=== PATIENT | female | born 2000 | race American Indian/Alaskan Native ===

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

== ENCOUNTER 2020-07-08 11:20 | Emergency (ER) | payer SELFPAY ==
[2020-07-08 11:27] VITALS: BP 110/75
[2020-07-08] MEDS ORDERED: ACETAMINOPHEN 325 MG TAB PO ONE (13:40)
[2020-07-08] MEDS ORDERED: LIDOCAINE 1%/EPINEPHRINE 1:100,000 VIAL (20 ML) INFILTRATI ONE (13:51)
[2020-07-08 14:19] LABS: Basophils % (Auto) 0.4 % (0.0-1.8); Eosinophils % (Auto) 0.8 % (0.0-4.3); Hematocrit 37.7 % (30.3-42.9); Hemoglobin 12.9 gm/dl (10.1-14.3); Lymphocytes # (Auto) 1.3 K/mm3 (1.2-5.4); Lymphocytes % (Auto) 27.2 % (13.4-35.0); Mean Corpuscular HGB Conc 34 % (30-34); Mean Corpuscular Volume 82 fl (79-97); Monocytes # (Auto) 0.3 K/mm3 (0.0-0.8); Monocytes % (Auto) 6.6 % (0.0-7.3); Platelet Count 305 K/mm3 (140-440); Red Blood Count 4.58 M/mm3 (3.65-5.03); Red Cell Distribution Width 14.5 % (13.2-15.2)
[2020-07-08] MEDS ORDERED: DIPHtheria,PERTUSSIS(ACELL),TETANUS VACCINE/PF 0.5 ML VIAL IM ONE (14:30)
[2020-07-08 14:32] LABS: Alanine Aminotransferase 9 units/L (7-56); Albumin 4.4 g/dL (3.9-5); Blood Urea Nitrogen 8 mg/dL (7-17); Calcium 9.6 mg/dL (8.4-10.2); Hemolysis Index 3
[2020-07-08 14:35] LABS: BUN/Creatinine Ratio 11
--- NOTE | 2020-07-08 15:08 | Emergency Department Report ---
ED Syncope HPI - General Chief Complaint: Fall Stated Complaint: FELL HIT HEAD Time Seen by Provider: 07/08/20 13:42 Source: patient Exam Limitations: no limitations - History of Present Illness Initial Comments: 20-year-old female with no significant past medical history presents to the hospital status post syncopal episode. Patient was standing in a hot garage doing a friend's hair. Patient states she was feeling hot, became diaphoretic, and then passed out striking her chin on the ground. Patient states she did not have anything to eat and very little to drink today as well. She complained of mild nausea during episode without vomiting. She currently complains of pain at her chin area laceration in her right TMJ pain. Patient denies headache, blurry vision, chest pain, shortness of breath, nausea, vomiting, diarrhea, heavy vaginal bleeding, melena, hematochezia, or infectious symptoms. Last tetanus unknown - Related Data Allergies/Adverse Reactions: Allergies No Known Allergies Allergy (Verified 01/26/19 11:23) Home Medications: Ambulatory Orders Amoxicillin/K Clav Tab [Augmentin 875MG TAB] 1 tab PO Q12HR #20 tab 08/18/18 Cetirizine HCl [ZyrTEC] 10 mg PO QAM 14 Days #14 capsule 08/18/18 Fluticasone [Flonase] 1 spray NS QDAY 14 Days #1 bottle 08/18/18 Ibuprofen [Motrin] 600 mg PO Q8H PRN #12 tablet 08/18/18 Amoxicillin 500 mg PO QID #40 capsule 01/26/19 Chlorhexidine Mouthwash [Peridex] 15 ml MM BID #473 bottle 01/26/19 Lidocaine Viscous 2% 5 ml MM Q3H PRN #120 udc 01/26/19 Famotidine [Pepcid] 20 mg PO BID #30 tablet 05/19/20 ED Review of Systems ROS: Stated complaint: FELL HIT HEAD Other details as noted in HPI Comment: All other systems reviewed and negative ED Past Medical Hx - Past Medical History Previous Medical History?: No - Surgical History Past Surgical History?: No - Social History Smoking Status: Never Smoker Substance Use Type: None - Medications Home Medications: Home Medications Medication Instructions Recorded Confirmed Last Taken Type Amoxicillin/K Clav Tab [Augmentin 1 tab PO Q12HR #20 tab 08/18/18 Unknown Rx 875MG TAB] Cetirizine HCl [ZyrTEC] 10 mg PO QAM 14 Days #14 capsule 08/18/18 Unknown Rx Fluticasone [Flonase] 1 spray NS QDAY 14 Days #1 bottle 08/18/18 Unknown Rx Ibuprofen [Motrin] 600 mg PO Q8H PRN #12 tablet 08/18/18 Unknown Rx Amoxicillin 500 mg PO QID #40 capsule 01/26/19 Unknown Rx Chlorhexidine Mouthwash [Peridex] 15 ml MM BID #473 bottle 01/26/19 Unknown Rx Lidocaine Viscous 2% 5 ml MM Q3H PRN #120 udc 01/26/19 Unknown Rx Famotidine [Pepcid] 20 mg PO BID #30 tablet 05/19/20 Unknown Rx ED Physical Exam - General Limitations: No Limitations - Other Other exam information: General: No acute distress Head: 2 cm laceration to chin Eyes: normal appearance ENT: Moist mucous membranes Neck: Normal appearance, no midline tenderness Chest: Clear to auscultation bilaterally CV: Regular rate and rhythm Abdomen: Soft, normal bowel sounds, nontender, nondistended, no rebound or guarding Back: Normal inspection Extremity: Normal inspection, full range of motion Neuro: Alert O x 3, no facial asymmetry, speech clear, no gross motor sensory deficit Psych: Appropriate behavior Skin: 2 cm chin laceration ED Course Vital Signs 07/08/20 11:27 Temperature 98.9 F Pulse Rate 103 H Respiratory 16 Rate Blood Pressure 110/75 [Right] O2 Sat by Pulse 97 Oximetry - Laceration /Wound Repair Face Wound Location: face (chin) Wound's Depth, Shape: linear Wound Explored: clean Anesthesia: Lidocaine w/ Epi Volume Anesthetic (ccs): 3 Wound Debrided: minimal Suture Size/Type: 5:0, nylon Number of Sutures: 4 Layer Closure?: No Sterile Dressing Applied?: Yes ED Medical Decision Making - Lab Data Result diagrams: 07/08/20 13:53 07/08/20 13:53 Lab Results 07/08/20 07/08/20 07/08/20 Range/Units 11:45 13:53 13:53 WBC 4.8 (4.5-11.0) K/mm3 RBC 4.58 (3.65-5.03) M/mm3 Hgb 12.9 (10.1-14.3) gm/dl Hct 37.7 (30.3-42.9) % MCV 82 (79-97) fl MCH 28 (28-32) pg MCHC 34 (30-34) % RDW 14.5 (13.2-15.2) % Plt Count 305 (140-440) K/mm3 Lymph % (Auto) 27.2 (13.4-35.0) % [place] % (Auto) 6.6 (0.0-7.3) % Eos % (Auto) 0.8 (0.0-4.3) % Baso % (Auto) 0.4 (0.0-1.8) % Lymph # 1.3 (1.2-5.4) K/mm3 [place] # 0.3 (0.0-0.8) K/mm3 Eos # 0.0 (0.0-0.4) K/mm3 Baso # 0.0 (0.0-0.1) K/mm3 Seg Neutrophils % 65.0 (40.0-70.0) % Seg Neutrophils # 3.1 (1.8-7.7) K/mm3 Sodium 136 L (137-145) mmol/L Potassium 4.0 (3.6-5.0) mmol/L Chloride 99.8 (98-107) mmol/L Carbon Dioxide 24 (22-30) mmol/L Anion Gap 16 mmol/L BUN 8 (7-17) mg/dL Creatinine 0.7 (0.6-1.2) mg/dL Estimated GFR > 60 ml/min BUN/Creatinine Ratio 11 % Glucose 84 (65-100) mg/dL POC Glucose 111 H (70-105) Calcium 9.6 (8.4-10.2) mg/dL Total Bilirubin 0.20 (0.1-1.2) mg/dL AST 19 (5-40) units/L ALT 9 (7-56) units/L Alkaline Phosphatase 46 (35-129) units/L Total Protein 8.3 H (6.3-8.2) g/dL Albumin 4.4 (3.9-5) g/dL Albumin/Globulin Ratio 1.1 % HCG, Quant (0-4) mIU/mL Urine Color (Yellow) Urine Turbidity (Clear) Urine pH (5.0-7.0) Ur Specific [place] (1.003-1.030) Urine Protein (Negative) mg/dL Urine Glucose (UA) (Negative) mg/dL Urine Ketones (Negative) mg/dL Urine Blood (Negative) Urine Nitrite (Negative) Urine Bilirubin (Negative) Urine Urobilinogen (<2.0) mg/dL Ur Leukocyte Esterase (Negative) Urine WBC (Auto) (0.0-6.0) /HPF Urine RBC (Auto) (0.0-6.0) /HPF U Epithel Cells (Auto) (0-13.0) /HPF Urine Bacteria (Auto) (Negative) /HPF Urine Mucus /HPF 07/08/20 07/08/20 07/08/20 Range/Units 13:53 14:57 15:15 WBC (4.5-11.0) K/mm3 RBC (3.65-5.03) M/mm3 Hgb (10.1-14.3) gm/dl Hct (30.3-42.9) % MCV (79-97) fl MCH (28-32) pg MCHC (30-34) % RDW (13.2-15.2) % Plt Count (140-440) K/mm3 Lymph % (Auto) (13.4-35.0) % [place] % (Auto) (0.0-7.3) % Eos % (Auto) (0.0-4.3) % Baso % (Auto) (0.0-1.8) % Lymph # (1.2-5.4) K/mm3 [place] # (0.0-0.8) K/mm3 Eos # (0.0-0.4) K/mm3 Baso # (0.0-0.1) K/mm3 Seg Neutrophils % (40.0-70.0) % Seg Neutrophils # (1.8-7.7) K/mm3 Sodium (137-145) mmol/L Potassium (3.6-5.0) mmol/L Chloride (98-107) mmol/L Carbon Dioxide (22-30) mmol/L Anion Gap mmol/L BUN (7-17) mg/dL Creatinine (0.6-1.2) mg/dL Estimated GFR ml/min BUN/Creatinine Ratio % Glucose (65-100) mg/dL POC Glucose 78 (70-105) Calcium (8.4-10.2) mg/dL Total Bilirubin (0.1-1.2) mg/dL AST (5-40) units/L ALT (7-56) units/L Alkaline Phosphatase (35-129) units/L Total Protein (6.3-8.2) g/dL Albumin (3.9-5) g/dL Albumin/Globulin Ratio % HCG, Quant < 2 (0-4) mIU/mL Urine Color Yellow (Yellow) Urine Turbidity Clear (Clear) Urine pH 7.0 (5.0-7.0) Ur Specific [place] 1.012 (1.003-1.030) Urine Protein <15 mg/dl (Negative) mg/dL Urine Glucose (UA) Neg (Negative) mg/dL Urine Ketones Neg (Negative) mg/dL Urine Blood Neg (Negative) Urine Nitrite Neg (Negative) Urine Bilirubin Neg (Negative) Urine Urobilinogen < 2.0 (<2.0) mg/dL Ur Leukocyte Esterase Sm (Negative) Urine WBC (Auto) 5.0 (0.0-6.0) /HPF Urine RBC (Auto) 1.0 (0.0-6.0) /HPF U Epithel Cells (Auto) 4.0 (0-13.0) /HPF Urine Bacteria (Auto) 1+ (Negative) /HPF Urine Mucus Few /HPF - EKG Data -: EKG Interpreted by Tx EKG shows normal: sinus rhythm, ST-T waves (no stemi) Rate: normal (79) - Radiology Data Radiology results: report reviewed CT facial bones wo con INDICATION / CLINICAL INFORMATION: 20 years Female; mandbile pain after fall. TECHNIQUE: Thin cut axial images obtained. Sagittal and coronal reconstructions performed. All CT scans at this location are performed using CT dose reduction for ALARA by means of automated exposure control. COMPARISON: None available. FINDINGS: No signs of facial fracture. Visualized paranasal sinuses are essentially clear. Small mucous retention cyst/polyp is noted in the left sphenoid sinus. Prominent soft tissue is seen in the roof the nasopharynx, presumably related to reactive adenoidal tissue. Please clinically correlate. IMPRESSION: 1. No signs of acute bony facial trauma. CT head/brain wo con INDICATION / CLINICAL INFORMATION: 20 years Female; Trauma, MICHEL, + LOC. TECHNIQUE: Routine CT head without contrast. All CT scans at this location are performed using CT dose reduction for ALARA by means of automated exposure control. COMPARISON: None. FINDINGS: BRAIN / INTRACRANIAL CONTENTS: No acute hemorrhage, mass effect, midline shift, hydrocephalus, or acute, large territorial infarct. No chronic infarct or atrophy appreciated. No significant white matter abnormality. CRANIOCERVICAL JUNCTION: No significant abnormality. ORBITS: No significant abnormality of visualized orbits. SINUSES / MASTOIDS: No significant abnormality in the visualized paranasal sinuses or mastoid air cells. ADDITIONAL FINDINGS: None. IMPRESSION: 1. No focal mass, hemorrhage, hydrocephalus, or acute, large territorial infarct. - Medical Decision Making Patient had a syncopal episode likely related to poor p.o. intake in hot environment in the garage. Patient was able to tolerate oral fluid hydration in the ED. Laceration repaired with sutures. Patient received a tetanus booster. Imaging studies do not reveal any acute injury. Initial tachycardia resolved however, patient did have increased heart rate with standing/positive orthostatic vital signs without blood pressure drop. Patient denies feeling lightheaded or dizzy with standing. Patient has been drinking water in the ED without difficulty. She is offered IV fluids but declined. She was encouraged to stay in a cool environment today (out of the heat), eat, and drink plenty of fluids. Pt received tylenol for pain in the ed. Critical Care Time: No Critical care attestation.: If time is entered above; I have spent that time in minutes in the direct care of this critically ill patient, excluding procedure time. ED Disposition Clinical Impression: Syncope, Volume depletion, Laceration of chin Disposition: DC-01 TO HOME OR SELFCARE Is pt being admited?: No Does the pt Need Aspirin: No Condition: Stable Instructions: Syncope (ED), Suture Care (ED) Additional Instructions: Take Motrin or Tylenol as needed for pain. Follow-up with your doctor or doctor/clinic provided. Return if symptoms worsen as indicated by your discharge instructions. Your stitches should be removed in 5 days. You may return to the ER or follow up with your doctor. Referrals: KIZZY RAIN MD [Primary Care Provider] - 3-5 Days KAYLIE DONALD MD [Staff Physician] - 3-5 Days (Primary care doctor) [facility] [Provider Group] - 3-5 Days (Primary care clinic) Time of Disposition: 15:49
[2020-07-08 15:16] LABS: Bacteria,Urine 1+ /HPF (Negative); Bilirubin,Urine NEG (Negative); Blood,Urine NEG (Negative); Color,Urine Yellow (Yellow); Mucus,Urine FEW /HPF; Protein,Urine <15 mg/dL mg/dL (Negative); Urobilinogen,Urine < 2.0 mg/dL (<2.0)
--- NOTE | 2020-07-08 15:21 | Cat Scan Report ---
CT head/brain wo con INDICATION / CLINICAL INFORMATION: 20 years Female; Trauma, MICHEL, + LOC. TECHNIQUE: Routine CT head without contrast. All CT scans at this location are performed using CT dos e reduction for ALARA by means of automated exposure control. COMPARISON: None. FINDINGS: BRAIN / INTRACRANIAL CONTENTS: No acute hemorrhage, mass effect, midline shift, hydrocephalus, or acu te, large territorial infarct. No chronic infarct or atrophy appreciated. No significant white matter abnormality. CRANIOCERVICAL JUNCTION: No significant abnormality. ORBITS: No significant abnormality of visualized orbits. SINUSES / MASTOIDS: No significant abnormality in the visualized paranasal sinuses or mastoid air tj ls. ADDITIONAL FINDINGS: None. IMPRESSION: 1. No focal mass, hemorrhage, hydrocephalus, or acute, large territorial infarct. Signer Name: Raymundo Brewer MD, III Signed: 07/08/2020 3:17 PM Workstation Name: [email or web address]
--- NOTE | 2020-07-08 15:34 | Cat Scan Report ---
CT facial bones wo con INDICATION / CLINICAL INFORMATION: 20 years Female; mandbile pain after fall. TECHNIQUE: Thin cut axial images obtained. Sagittal and coronal reconstructions performed. All CT scans at this location are performed using CT dose reduction for ALARA by means of automated exposure control. COMPARISON: None available. FINDINGS: No signs of facial fracture. Visualized paranasal sinuses are essentially clear. Small mucous retention cyst/polyp is noted in the left sphenoid sinus. Prominent soft tissue is seen in the roof the nasopharynx, presumably related to reactive adenoidal t issue. Please clinically correlate. IMPRESSION: 1. No signs of acute bony facial trauma. Signer Name: Raymundo Brewer MD, III Signed: 07/08/2020 3:30 PM Workstation Name: [email or web address]
== END 2020-07-08 16:16 | disposition home or self-care (01) ==
LOC: ED 11:20
DX: S01.81XA Laceration without foreign body of other part of head, initial encounter (principal); E86.9 Volume depletion, unspecified; W18.39XA Other fall on same level, initial encounter; Y93.89 Activity, other specified; Y92.89 Other specified places as the place of occurrence of the external cause; Y99.8 Other external cause status
CPT/HCPCS: 36415; 70450; 70486; 80053; 81001; 82962; 84702; 85025; 90471; 90715; 93005

== ENCOUNTER 2021-02-14 18:26 | Emergency (ER) | payer SELFPAY ==
[2021-02-14 20:31] VITALS: BP 108/63
--- NOTE | 2021-02-14 20:32 | Emergency Department Report ---
Chief Complaint: Sore Throat Stated Complaint: FLU SYMPTOMS Time Seen by Provider: 02/14/21 19:14 - HPI History of Present Illness: Patient presents with complaints of congestion, itchiness to throat, runny nose, nasal congestion x2 days. She denies any pain in her throat, cough, rash, swollen lymph nodes, fever/chills/sweats, loss of taste/smell, nausea/vomiting/diarrhea, or chest pain. Patient states her symptoms improved with tea with honey mixed in. She denies any past medical history and states she is otherwise feeling well. On exam, the throat is normal in appearance without cervical lymphadenopathy. Bilateral turbinate erythema and swelling is noted with a pale bluish color. History and exam is consistent with allergic rhinitis. Recommend OTC loratadine and Flonase. Also recommend follow-up with primary care within 3 to 5 days. Her vitals are normal, she is well-appearing, she is stable for discharge home. - Exam Vital Signs: Vital Signs 02/14/21 19:03 Temperature 98.4 F Pulse Rate 91 H Respiratory 16 Rate Blood Pressure 112/42 [Right] O2 Sat by Pulse 98 Oximetry MSE screening note: Focused history and physical exam performed. Due to findings the following was ordered: ED Disposition for MSE Clinical Impression: Allergic rhinitis Qualifiers: Allergic rhinitis trigger: pollen Allergic rhinitis seasonality: unspecified Qualified Code(s): J30.1 - Allergic rhinitis due to pollen Disposition: MED SCREENING EXAM-LEFT Is pt being admited?: No Condition: Stable Instructions: Allergic Rhinitis, Adult Additional Instructions: Please purchase [id number] loratadine and fluticasone Referrals: [facility] [Provider Group] - 3-5 Days ED Physical Exam - General Limitations: No Limitations General appearance: alert, in no apparent distress - Head Head exam: Present: atraumatic, normocephalic - Eye Eye exam: Present: normal appearance. Absent: scleral icterus - ENT ENT exam: Present: normal orophraynx - Expanded ENT Exam Expanded Mouth exam: Absent: drooling, trismus Throat exam: Negative: normal inspection, tonsillomegaly, tonsillar exudate - Neck Neck exam: Present: normal inspection, full ROM. Absent: lymphadenopathy - Respiratory Respiratory exam: Present: normal lung sounds bilaterally. Absent: respiratory distress - Cardiovascular Cardiovascular Exam: Present: regular rate - Neurological Exam Neurological exam: Present: alert, oriented X3, normal gait - Psychiatric Psychiatric exam: Present: normal affect, normal mood - Skin Skin exam: Present: warm, dry, intact, normal color. Absent: rash ED Review of Systems ROS: Stated complaint: FLU SYMPTOMS Other details as noted in HPI Constitutional: denies: chills, fever Eyes: denies: eye pain ENT: as per HPI Cardiovascular: denies: chest pain Gastrointestinal: denies: nausea, vomiting, diarrhea Skin: denies: lesions, change in color Neurological: denies: headache Hematological/Lymphatic: denies: swollen glands
== END 2021-02-14 20:20 | disposition left against medical advice (07) ==
LOC: ED 18:26
DX: J30.1 Allergic rhinitis due to pollen (principal); Z53.21 Procedure and treatment not carried out due to patient leaving prior to being seen by health care provider

== ENCOUNTER 2022-04-01 11:18 | Observation (INO) | payer MEDICAID ==
[2022-04-01] MEDS ORDERED: LACTATED RINGERS 500 ML IV ONE (13:00)
[2022-04-01] MEDS ORDERED: ACETAMINOPHEN 500 MG TAB PO ONE ×2 (14:00→20:17)
--- NOTE | 2022-04-01 14:09 | XRay Report ---
CHEST 1 VIEW 04/01/2022 1:03 PM INDICATION / CLINICAL INFORMATION: chills, fever, face pain, throat pain, abd. pain. COMPARISON: 06/05/2020 FINDINGS: SUPPORT DEVICES: None. HEART / MEDIASTINUM: No significant abnormality. LUNGS / PLEURA: No significant pulmonary or pleural abnormality. No pneumothorax. ADDITIONAL FINDINGS: No significant additional findings. IMPRESSION: 1. No acute findings. Signer Name: Aris Joyner MD Signed: 04/01/2022 2:04 PM Workstation Name: [email or web address]
[2022-04-01 14:18] LABS: Bacteria,Urine 2+ /HPF (Negative); Bilirubin,Urine NEG (Negative); Blood,Urine NEG (Negative); Color,Urine Yellow (Yellow); Mucus,Urine FEW /HPF; Protein,Urine <15 mg/dL mg/dL (Negative)
[2022-04-01] MEDS ORDERED: LACTATED RINGERS 1,000 ML IV ONE (15:19)
[2022-04-01] MEDS ORDERED: ceFAZolin/NS 1 GM/50 ML 1 GM/50 ML BAG IV ONE (16:00)
[2022-04-01] MEDS ORDERED: ONDANSETRON 4 MG/2 ML INJ IV PRN (17:04)
[2022-04-01] MEDS ORDERED: ACETAMINOPHEN 325 MG TAB PO PRN (17:04)
[2022-04-01] MEDS ORDERED: DOCUSATE SODIUM 100 MG CAP PO PRN (17:04)
[2022-04-01] MEDS ORDERED: SODIUM CHLORIDE NASAL SPRAY 44ML NS PRN (17:04)
[2022-04-01] MEDS ORDERED: SIMETHICONE 80 MG CHEW TAB PO PRN (17:04)
[2022-04-01] MEDS ORDERED: guaiFENesin DM 200/20 MG ORAL LIQD 10 ML PO PRN (17:04)
[2022-04-01] MEDS ORDERED: PRENATAL VIT27-FE FUMARATE-FOLIC ACID VIT TAB PO SCH (18:00)
--- NOTE | 2022-04-01 18:31 | Ultrasound Report ---
ULTRASOUND OBSTETRIC LIMITED ULTRASOUND BIOPHYSICAL PROFILE INDICATION / CLINICAL INFORMATION: CONTRACTIONS - BPP. Clinical Gestational Age (GA) in weeks, days: 34, 4 TECHNIQUE: Transabdominal. COMPARISON: None available. FINDINGS: BREATHING MOVEMENT = 2 GROSS BODY MOVEMENT = 2 TONE = 2 QUALITATIVE AMNIOTIC FLUID VOLUME = 2 TOTAL BIOPHYSICAL SCORE = 8/8 HEART RATE (beats per minute): 156 AMNIOTIC FLUID INDEX (cm) = 12.8 (normal = 7-24 cm) PRESENTATION: Cephalic. ADDITIONAL FINDINGS: None. IMPRESSION: 1. Biophysical Score = 8/8 Signer Name: Adolfo Burgess DO Signed: 04/01/2022 6:26 PM Workstation Name: [email or web address]
[2022-04-01 18:40] LABS: Alanine Aminotransferase 14 units/L (7-56); Albumin 3.7 g/dL (3.9-5); BUN/Creatinine Ratio 10; Blood Urea Nitrogen 6 mg/dL (7-17); Calcium 8.9 mg/dL (8.4-10.2); Hemolysis Index 0
[2022-04-01 18:59] LABS: Hematocrit 29.6 % (30.3-42.9); Hemoglobin 10.1 gm/dl (10.1-14.3); Mean Corpuscular HGB Conc 34 % (30-34); Mean Corpuscular Volume 83 fl (79-97); Platelet Count 228 K/mm3 (140-440); Red Blood Count 3.57 M/mm3 (3.65-5.03); Red Cell Distribution Width 13.8 % (13.2-15.2)
--- NOTE | 2022-04-01 19:24 | Ultrasound Report ---
ULTRASOUND OBSTETRIC LIMITED INDICATION / CLINICAL INFORMATION: Presentation, DOE, Cervical length. Clinical Gestational Age (GA) in weeks, days: 34 weeks 4 days TECHNIQUE: Transabdominal. Translabial COMPARISON: None available. FINDINGS: HEART RATE (beats per minute): 151 AMNIOTIC FLUID INDEX (cm) = 12.8 cm (normal = 7-24 cm) PRESENTATION: Cephalic. ADDITIONAL FINDINGS: Cervical length is measured at 4.3 cm. IMPRESSION: 1. Single viable IUP in a cephalic presentation. 2. Cervical length is 4.3 cm. Signer Name: Deepthi Bennett MD Signed: 04/01/2022 7:20 PM Workstation Name: [id number]
[2022-04-01] MEDS ORDERED: LACTATED RINGERS 1,000 ML ONE ×2 (19:35→22:46)
[2022-04-01 20:38] LABS: Basophils % (Manual) 0 % (0.0-1.8); Total Cells Counted 100
[2022-04-01 20:39] LABS: RBC Morphology Normal
[2022-04-02] MEDS ORDERED: LACTATED RINGERS 1,000 ML IV SCH (03:00)
--- NOTE | 2022-04-02 07:45 | History and Physical Report ---
History of Present Illness Date of examination: 04/02/22 Date of admission: 04/01/22 17:04 Chief complaint: headache, abdominal pain,sore throat, ear pain, malaise x 1 day History of present illness: This patient is a 21-year-old female primigravida JULIO 05/09/2022 at 34 weeks 5 days who was admitted yesterday with contractions and headache, ear pain, body aches, fever, and general malaise concerning for coronavirus 19 infection. Overnight she received IV fluids as well as Tylenol for fever. She had a biophysical profile that was 8 out of 8 and a limited obstetric ultrasound revealing a cephalic fetus. Her cervical length was noted to be greater than 2 cm. She also had a chest x-ray that showed no acute abnormality and has been maintaining her oxygen saturations above 96% on room air. This morning, the patient is feeling a little better and her COVID test is pending. She has had care at [place] [facility] [employer] [facility] since 20 weeks complicated by SGA fetus and HSV-1 infection. 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) Family/Genetic History: none Social history: no significant social history - Obstetrical History Expected Date of Delivery: 05/09/22 Actual Gestation: 34 Week(s) 5 Day(s) : 1 Medications and Allergies Allergies Allergy/AdvReac Type Severity Reaction Status Date / Time No Known Allergies Allergy Verified 01/26/19 11:23 Home Medications Medication Instructions Recorded Confirmed Last Taken Type Amoxicillin/K Clav Tab [Augmentin 1 tab PO Q12HR #20 tab 08/18/18 Unknown Rx 875MG TAB] Cetirizine HCl [ZyrTEC] 10 mg PO QAM 14 Days #14 capsule 08/18/18 Unknown Rx Fluticasone [Flonase] 1 spray NS QDAY 14 Days #1 bottle 08/18/18 Unknown Rx Ibuprofen [Motrin] 600 mg PO Q8H PRN #12 tablet 08/18/18 Unknown Rx Amoxicillin 500 mg PO QID #40 capsule 01/26/19 Unknown Rx Chlorhexidine Mouthwash [Peridex] 15 ml MM BID #473 bottle 01/26/19 Unknown Rx Lidocaine Viscous 2% 5 ml MM Q3H PRN #120 udc 01/26/19 Unknown Rx Famotidine [Pepcid] 20 mg PO BID #30 tablet 05/19/20 Unknown Rx Active Meds: Active Medications Acetaminophen (Acetaminophen 325 Mg Tab) 650 mg PO Q4H PRN PRN Reason: Pain MILD(1-3)/Fever >100.5/MICHEL Docusate Sodium (Docusate Sodium 100 Mg Cap) 100 mg PO Q12H PRN PRN Reason: Constipation Guaifenesin (Guaifenesin Dm 200/20 Mg Oral Liqd 10 Ml) 10 ml PO Q6H PRN PRN Reason: Cough Lactated Ringer's (Lactated Ringers) 1,000 mls @ 125 mls/hr IV DIRECT AMY Multivitamins/Iron/Calcium ( Hub37-Yq Fumarate-Folic Acid Vit Tab) 1 each PO QDAY AMY Ondansetron HCl (Ondansetron 4 Mg/2 Ml Inj) 4 mg IV Q6H PRN PRN Reason: Nausea And Vomiting Simethicone (Simethicone 80 Mg Chew Tab) 80 mg PO Q6H PRN PRN Reason: Gas pain Sodium Chloride (Sodium Chloride Nasal [place] 44ml) 2 spray NS Q4H PRN PRN Reason: Congestion Review of Systems All systems: negative - Vital Signs Vital signs: Vital Signs Temp Pulse Resp BP Pulse Ox 101.3 F H 114 H 24 106/68 98 04/01/22 11:46 04/01/22 11:46 04/01/22 11:46 04/01/22 11:46 04/01/22 11:46 Temp Pulse Resp BP Pulse Ox 99.0 F 100 H 18 104/56 95 04/02/22 07:37 04/02/22 07:41 04/01/22 19:33 04/02/22 07:38 04/02/22 07:41 - Physical Exam Breasts: Positive: deferred Abdomen: Positive: soft (gravid). Negative: tenderness Uterus: Positive: enlarged (gravid) Extremities: Positive: normal - Obstetrical FHR: auscultation normal Uterine Contraction Monitor Mode: External Uterine Contraction Pattern: Irregular Uterine Tone Measurement Phase: Resting Uterine Contraction Intensity: Mild Results Result Diagrams: 04/01/22 12:45 04/01/22 12:45 Abnormal lab results 05/16/22 05/16/22 05/16/22 Range/Units 12:45 12:45 13:25 RBC 3.57 L (3.65-5.03) M/mm3 Hct 29.6 L (30.3-42.9) % Seg Neuts % (Manual) 89.0 H (40.0-70.0) % Lymphocytes % (Manual) 6.0 L (13.4-35.0) % Lymphocytes # (Manual) 0.5 L (1.2-5.4) K/mm3 Sodium 134 L (137-145) mmol/L Carbon Dioxide 20 L (22-30) mmol/L BUN 6 L (7-17) mg/dL Glucose 48 L (65-100) mg/dL Albumin 3.7 L (3.9-5) g/dL Urine WBC (Auto) 20.0 H (0.0-6.0) /HPF U Epithel Cells (Auto) 20.0 H (0-13.0) /HPF All other labs normal. Ultrasound: report reviewed Assessment and Plan A: IUP at 34w5d Fever, body aches, headache, chills, sore throat, malaise concerning for Coronavirus 19 infection contractions- resolved with IV hydration HSV-1 infection P: Admit to antepartum service Continue supportive care Follow-up COVID-19 test result Continue to closely monitor maternal and status
--- NOTE | 2022-04-02 13:22 | Event Note ---
Date: 04/02/22 On-call provider notified that the patient's COVID-19 test has returned positive. She continues to maintain her oxygen saturation and the patient is asking to go home. She will be discharged with precautions with instructions to follow-up in the office in 10 to 14 days once her COVID test is negative.
--- NOTE | 2022-04-02 13:26 | Discharge Summary ---
Providers - Providers Date of Admission: 04/01/22 17:04 Date of discharge: 04/02/22 Attending physician: JOEY BARDALES Primary care physician: [employer] Hospitalization Reason for admission: other (fever, contractions ) Discharge diagnosis: other (COVID 19 infection, ) Hospital course: This patient was admitted for observation secondary to fever, chills, headache, body aches and generalized malaise as well as contractions. She received IV hydration, Tylenol, as well as a chest x-ray with no acute abnormal findings and a biophysical profile that was reassuring as well. The patient was diagnosed with COVID 19 however she was maintaining her oxygen saturations above 96% on room air and her contractions resolved overnight with IV hydration. On hospital day #1 the patient met discharge criteria. She will follow-up in the office in 10 to 14 days once her COVID test is negative. Condition at discharge: Stable Disposition: 01 HOME / SELF CARE / HOMELESS - Discharge Diagnoses (1) COVID-19 affecting in third trimester Status: Acute (2) Status: Acute Qualifiers: Weeks of gestation: 34 weeks Qualified Code(s): Z3A.34 - 34 weeks gestation of (3) uterine contractions in third trimester, antepartum Status: Acute Plan - Provider Discharge Summary Activity: routine Diet: routine Instructions: routine Additional instructions: [] Smoking cessation referral if applicable(refer to patient education folder for contact #) [] Refer to [facility] Booklet Call your doctor immediately for: * Fever > 100.5 * Heavy vaginal bleeding ( >1 pad per hour) * Severe persistent headache * Shortness of breath * Reddened, hot, painful area to leg or breast * Drainage or odor from incision. * Keep incision clean and dry at all times and follow doctor's instructions regarding bathing/showering - Follow up plan Follow up: KIZZY RAIN MD [Primary Care Provider] - 7 Days JOYE BARDALES MD [Staff Physician] - 14 Days (Please call to schedule appt)
[2022-04-02 14:41] VITALS: BP 100/57
== END 2022-04-02 14:39 | disposition home or self-care (01) ==
LOC: TRG 11:18 → APU 11:24 → TRG 17:19 → LD 18:26
PROVIDERS: ADMIT Obstetrics & Gynecology; ATTEND Obstetrics & Gynecology
DX: O98.513 Other viral diseases complicating pregnancy, third trimester (principal); U07.1 COVID-19; O60.03 Preterm labor without delivery, third trimester; O26.893 Other specified pregnancy related conditions, third trimester; R51.9 Headache, unspecified; R50.9 Fever, unspecified; J02.9 Acute pharyngitis, unspecified; Z3A.34 34 weeks gestation of pregnancy
CPT/HCPCS: 36415; 59025; 71045; 76815; 76819; 80053; 81001; 85025; 86850; 86900; 86901; 87086; 96365; G0378; J0690; J7120; U0003; 85007; 96360

== ENCOUNTER 2022-04-21 20:25 | Inpatient (IN) | payer MEDICAID ==
[2022-04-21] MEDS ORDERED: OXYTOCIN 10 UNIT/1 ML INJ IM PRN (21:56)
[2022-04-21] MEDS ORDERED: NALOXONE 0.4 MG/1 ML INJ IV PRN (21:56)
[2022-04-21] MEDS ORDERED: TERBUTALINE 1 MG/1 ML INJ SUB-Q PRN (21:56)
[2022-04-21] MEDS ORDERED: fentaNYL 100 MCG/2 ML INJ IV PRN (21:56)
[2022-04-21] MEDS ORDERED: ACETAMINOPHEN 325 MG TAB PO PRN (21:56)
[2022-04-21] MEDS ORDERED: ONDANSETRON 4 MG/2 ML INJ IV PRN (21:56)
[2022-04-21] MEDS ORDERED: miSOPROStol 200 MCG TAB PR PRN (21:56)
[2022-04-21] MEDS ORDERED: ePHEDrine SULFATE 50 MG/1 ML INJ IV PRN (21:56)
[2022-04-21] MEDS ORDERED: DINOPROSTONE 10 MG VAG SUPP VG ONE (21:56)
[2022-04-21] MEDS ORDERED: MINERAL OIL 30 ML ORAL LIQD PO PRN (21:56)
[2022-04-21] MEDS ORDERED: LIDOCAINE (2%) 20 MG/1 ML VIAL 20 ML MDV INFILTRATI ONE (21:56)
[2022-04-21] MEDS ORDERED: LOPERAMIDE 2 MG CAP PO PRN (21:56)
[2022-04-21] MEDS ORDERED: AMPICILLIN/NS 2 GM/100 ML 2 GM/100 ML BAG IV ONE (21:56)
[2022-04-21] MEDS ORDERED: CARBOPROST TROMETHAMINE 250 MCG/1 ML INJ IM PRN (21:56)
[2022-04-21] MEDS ORDERED: METHYLERGONOVINE MALEATE 0.2 MG/ML VIAL IM PRN (21:56)
[2022-04-21] MEDS ORDERED: BUTORPHANOL 2 MG/1 ML INJ IV PRN (21:56)
[2022-04-21] MEDS ORDERED: OXYTOCIN DRIP 30 UNITS/500 ML BAG IV SCH ×2 (22:00)
[2022-04-21] MEDS: LACTATED RINGERS 1,000 ML IV SCH (22:14)
[2022-04-21 22:23] LABS: Hemoglobin 10.5 gm/dl (10.1-14.3); Mean Corpuscular HGB Conc 34 % (30-34); Mean Corpuscular Volume 82 fl (79-97); Platelet Count 277 K/mm3 (140-440); Red Blood Count 3.77 M/mm3 (3.65-5.03); Red Cell Distribution Width 14.9 % (13.2-15.2)
[2022-04-22] MEDS ORDERED: AMPICILLIN/NS 1 GM/50 ML 1 GM/50 ML BAG IV SCH (02:00)
[2022-04-22] MEDS: LACTATED RINGERS 1,000 ML IV SCH (07:35)
[2022-04-22] MEDS ORDERED: DINOPROSTONE 10 MG VAG SUPP VG ONE (11:57)
--- NOTE | 2022-04-22 23:07 | Progress Note ---
Assessment and Plan HD 1 here for induction of labor at 37 weeks secondary to IUGR. Pt is only complaining of mild contractions at this time. Subjective - Subjective Date of service: 04/22/22 Principal diagnosis: IUGR Interval history: Pt received a second cervidil this morning. She is complaining of tolerable contractions, but is not requesting any pain medications. Patient reports: contractions Objective - Vital Signs Vital Signs: Vital Signs - 12hr 04/22/22 04/22/22 04/22/22 13:12 13:13 13:15 Temperature 98.1 F Pulse Rate 76 93 H 91 H Respiratory 15 Rate Blood Pressure 110/64 Blood Pressure 110/64 [Right] O2 Sat by Pulse 99 100 Oximetry O2 Sat by Pulse Oximetry [ Anterior Bilateral Throughout] 04/22/22 04/22/22 04/22/22 13:17 13:22 13:27 Temperature Pulse Rate 91 H 86 79 Respiratory Rate Blood Pressure Blood Pressure [Right] O2 Sat by Pulse 100 100 100 Oximetry O2 Sat by Pulse Oximetry [ Anterior Bilateral Throughout] 04/22/22 04/22/22 04/22/22 13:32 13:37 13:42 Temperature Pulse Rate 94 H 78 81 Respiratory Rate Blood Pressure Blood Pressure [Right] O2 Sat by Pulse 99 99 99 Oximetry O2 Sat by Pulse Oximetry [ Anterior Bilateral Throughout] 04/22/22 04/22/22 04/22/22 13:47 13:52 13:57 Temperature Pulse Rate 82 91 H 76 Respiratory Rate Blood Pressure Blood Pressure [Right] O2 Sat by Pulse 99 99 99 Oximetry O2 Sat by Pulse Oximetry [ Anterior Bilateral Throughout] 04/22/22 04/22/22 04/22/22 14:02 14:07 14:12 Temperature Pulse Rate 78 86 87 Respiratory Rate Blood Pressure Blood Pressure [Right] O2 Sat by Pulse 99 99 99 Oximetry O2 Sat by Pulse Oximetry [ Anterior Bilateral Throughout] 04/22/22 04/22/22 04/22/22 14:17 14:22 14:27 Temperature Pulse Rate 82 81 84 Respiratory Rate Blood Pressure Blood Pressure [Right] O2 Sat by Pulse 100 99 99 Oximetry O2 Sat by Pulse Oximetry [ Anterior Bilateral Throughout] 04/22/22 04/22/22 04/22/22 14:32 14:37 14:42 Temperature Pulse Rate 90 92 H 89 Respiratory Rate Blood Pressure Blood Pressure [Right] O2 Sat by Pulse 99 99 99 Oximetry O2 Sat by Pulse Oximetry [ Anterior Bilateral Throughout] 04/22/22 04/22/22 04/22/22 14:47 14:52 14:57 Temperature Pulse Rate 76 84 79 Respiratory Rate Blood Pressure Blood Pressure [Right] O2 Sat by Pulse 99 100 100 Oximetry O2 Sat by Pulse Oximetry [ Anterior Bilateral Throughout] 04/22/22 04/22/22 04/22/22 15:02 15:07 15:12 Temperature Pulse Rate 72 87 79 Respiratory Rate Blood Pressure Blood Pressure [Right] O2 Sat by Pulse 100 100 100 Oximetry O2 Sat by Pulse Oximetry [ Anterior Bilateral Throughout] 04/22/22 04/22/22 04/22/22 15:17 15:22 15:27 Temperature Pulse Rate 84 85 74 Respiratory Rate Blood Pressure Blood Pressure [Right] O2 Sat by Pulse 100 99 100 Oximetry O2 Sat by Pulse Oximetry [ Anterior Bilateral Throughout] 04/22/22 04/22/22 04/22/22 15:32 15:37 15:42 Temperature Pulse Rate 89 85 80 Respiratory Rate Blood Pressure Blood Pressure [Right] O2 Sat by Pulse 100 100 99 Oximetry O2 Sat by Pulse Oximetry [ Anterior Bilateral Throughout] 04/22/22 04/22/22 04/22/22 15:47 15:52 15:57 Temperature Pulse Rate 84 79 69 Respiratory Rate Blood Pressure Blood Pressure [Right] O2 Sat by Pulse 100 100 100 Oximetry O2 Sat by Pulse Oximetry [ Anterior Bilateral Throughout] 04/22/22 04/22/22 04/22/22 16:02 16:07 16:12 Temperature Pulse Rate 78 73 85 Respiratory Rate Blood Pressure Blood Pressure [Right] O2 Sat by Pulse 100 99 99 Oximetry O2 Sat by Pulse Oximetry [ Anterior Bilateral Throughout] 04/22/22 04/22/22 04/22/22 16:17 16:22 16:27 Temperature Pulse Rate 75 77 87 Respiratory Rate Blood Pressure Blood Pressure [Right] O2 Sat by Pulse 99 99 100 Oximetry O2 Sat by Pulse Oximetry [ Anterior Bilateral Throughout] 04/22/22 04/22/22 04/22/22 16:32 16:37 16:42 Temperature Pulse Rate 74 72 67 Respiratory Rate Blood Pressure Blood Pressure [Right] O2 Sat by Pulse 99 100 100 Oximetry O2 Sat by Pulse Oximetry [ Anterior Bilateral Throughout] 04/22/22 04/22/22 04/22/22 16:47 16:52 16:57 Temperature Pulse Rate 79 76 77 Respiratory Rate Blood Pressure Blood Pressure [Right] O2 Sat by Pulse 100 100 100 Oximetry O2 Sat by Pulse Oximetry [ Anterior Bilateral Throughout] 04/22/22 04/22/22 04/22/22 17:02 17:07 19:00 Temperature Pulse Rate 72 70 Respiratory Rate Blood Pressure Blood Pressure [Right] O2 Sat by Pulse 99 100 Oximetry O2 Sat by Pulse 83 L Oximetry [ Anterior Bilateral Throughout] 04/22/22 04/22/22 04/22/22 19:46 19:47 19:51 Temperature 97.5 F L Pulse Rate 77 84 79 Respiratory 18 Rate Blood Pressure 118/69 Blood Pressure 118/69 [Right] O2 Sat by Pulse 100 100 Oximetry O2 Sat by Pulse Oximetry [ Anterior Bilateral Throughout] 04/22/22 19:52 Temperature Pulse Rate 82 Respiratory Rate Blood Pressure Blood Pressure [Right] O2 Sat by Pulse 100 Oximetry O2 Sat by Pulse Oximetry [ Anterior Bilateral Throughout] - Exam Breasts: deferred Cardiovascular: Regular rate, Normal S1, Normal S2 Lungs: Clear to auscultation, Normal air movement Abdomen: Present: normal appearance, soft, normal bowel sounds Uterus: Present: firm, fundal height above umbilicus FHR: auscultation normal Cervical Dilatation: 0 Cervical Effacement Percentage: 20 station: -3 Uterine Contraction Intensity: Mild - Labs Labs: Abnormal Labs 04/21/22 21:00 WBC 4.2 L Laboratory Results - last 24 hr 04/22/22 08:12 SARS-CoV-2 (PCR) Negative
--- NOTE | 2022-04-23 07:32 | History and Physical Report ---
History of Present Illness Date of examination: 04/23/22 Date of admission: 04/21/22 20:25 Chief complaint: severe growth restriction History of present illness: Pt is a 21 year old female primigravida JULIO 05/09/22 at 37w5d who presented on 04/21/22 for induction of labor secondary to growth restriction. Since admission she has received two doses of Cervidil. She reports irregular contractions. She denies vaginal bleeding or leakage of fluid. She has had pre silas care at [place] [facility] since transfer into care at 23 wks complicated by growth restriction, recent COVID infection, HSV1 infection. She is GBS negative. 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 ) Family/Genetic History: none Social history: no significant social history - Obstetrical History Expected Date of Delivery: 05/09/22 Actual Gestation: 37 Week(s) 5 Day(s) : 1 Medications and Allergies Allergies Allergy/AdvReac Type Severity Reaction Status Date / Time No Known Allergies Allergy Verified 01/26/19 11:23 Home Medications Medication Instructions Recorded Confirmed Last Taken Type Amoxicillin/K Clav Tab [Augmentin 1 tab PO Q12HR #20 tab 08/18/18 Unknown Rx 875MG TAB] Cetirizine HCl [ZyrTEC] 10 mg PO QAM 14 Days #14 capsule 08/18/18 Unknown Rx Fluticasone [Flonase] 1 spray NS QDAY 14 Days #1 bottle 08/18/18 Unknown Rx Ibuprofen [Motrin] 600 mg PO Q8H PRN #12 tablet 08/18/18 Unknown Rx Amoxicillin 500 mg PO QID #40 capsule 01/26/19 Unknown Rx Chlorhexidine Mouthwash [Peridex] 15 ml MM BID #473 bottle 01/26/19 Unknown Rx Lidocaine Viscous 2% 5 ml MM Q3H PRN #120 udc 01/26/19 Unknown Rx Famotidine [Pepcid] 20 mg PO BID #30 tablet 05/19/20 Unknown Rx Active Meds: Active Medications Acetaminophen (Acetaminophen 325 Mg Tab) 650 mg PO Q4H PRN PRN Reason: Pain, Mild (1-3) Butorphanol Tartrate (Butorphanol 2 Mg/1 Ml Inj) 1 mg IV Q2H PRN PRN Reason: Pain, Moderate(4-6) LABOR PAIN Carboprost Tromethamine (Carboprost Tromethamine 250 Mcg/1 Ml Inj) 250 mcg IM ONCE PRN PRN Reason: Uterine Bleeding Ephedrine Sulfate (Ephedrine Sulfate 50 Mg/1 Ml Inj) 10 mg IV Q2M PRN PRN Reason: Hypotension Fentanyl (Fentanyl 100 Mcg/2 Ml Inj) 100 mcg IV Q2H PRN PRN Reason: Pain,Severe (7-10) LABOR PAIN Oxytocin/Sodium Chloride (Pitocin/Ns 30 Unit/500ml) 30 units in 500 mls @ 2 mls/hr IV TITR AMY; Protocol Last Admin: 04/23/22 06:23 Dose: 2 ml/hr, 2 mls/hr Lactated Ringer's (Lactated Ringers) 1,000 mls @ 125 mls/hr IV DIRECT AMY Last Admin: 04/22/22 07:35 Dose: 125 mls/hr Oxytocin/Sodium Chloride (Pitocin/Ns 30 Unit/500ml) 30 units in 500 mls @ 40 mls/hr IV TITR AMY; Protocol Ampicillin Sodium (Ampicillin/Ns 1 Gm/50 Ml) 1 gm in 50 mls @ 100 mls/hr IV Q4H AMY; Protocol Last Admin: 04/22/22 03:56 Dose: 100 mls/hr Loperamide HCl (Loperamide 2 Mg Cap) 2 mg PO ONCE PRN PRN Reason: give with Hemabate Methylergonovine Maleate (Methylergonovine Maleate 0.2 Mg/Ml Vial) 0.2 mg IM ONCE PRN PRN Reason: Uterine Bleeding Mineral Oil (Mineral Oil 30 Ml Oral Liqd) 30 ml PO QHS PRN PRN Reason: Constipation Misoprostol (Misoprostol 200 Mcg Tab) 800 mcg MN ONCE PRN PRN Reason: Uterine Bleeding Naloxone HCl (Naloxone 0.4 Mg/1 Ml Inj) 0.1 mg IV Q2MIN PRN PRN Reason: Res Rate </= 8 or 02 SAT < 92% Ondansetron HCl (Ondansetron 4 Mg/2 Ml Inj) 4 mg IV Q8H PRN PRN Reason: Nausea And Vomiting Oxytocin (Oxytocin 10 Unit/1 Ml Inj) 10 unit IM ONCE PRN PRN Reason: Uterine Bleeding Terbutaline Sulfate (Terbutaline 1 Mg/1 Ml Inj) 0.25 mg SUB-Q ONCE PRN PRN Reason: Hyperstimulation/Hypertonicity Review of Systems All systems: negative - Vital Signs Vital signs: Vital Signs Pulse Ox 98 04/21/22 21:03 Temp Pulse Resp BP Pulse Ox 97.5 F L 68 18 101/65 99 04/22/22 19:51 04/23/22 07:26 04/22/22 19:51 04/23/22 07:09 04/23/22 07:26 - Physical Exam Breasts: Positive: deferred Abdomen: Positive: soft (gravid ) Uterus: Positive: enlarged (gravid ) Extremities: Positive: normal - Obstetrical FHR: auscultation normal Uterine Contraction Monitor Mode: External Cervical Dilatation: 1 Cervical Effacement Percentage: 60 (firm ) station: -2 Uterine Contraction Pattern: Irregular Uterine Tone Measurement Phase: Resting Uterine Contraction Intensity: Mild Results Result Diagrams: 04/21/22 21:00 All other labs normal. Assessment and Plan A: IUP at 37w5d Severe Growth Restriction HSV1 infection GBS Negative P: Admit to labor and delivery Continue cervical ripening with low dose pitocin Closely monitor maternal and status
[2022-04-23] MEDS ORDERED: valACYclovir 500 MG TAB PO SCH (10:00)
[2022-04-23] MEDS: miSOPROStol 25 MCG TAB VG SCH (22:26)
[2022-04-24] MEDS: miSOPROStol 25 MCG TAB VG SCH ×3 (02:38→12:17)
--- NOTE | 2022-04-24 08:51 | Progress Note ---
Assessment and Plan - Patient Problems (1) IUGR (intrauterine growth restriction) Current Visit: Yes Status: Acute Plan to address problem: Continue cytotec as tolerated Continue to monitor maternal/ status closely Will re-assess around noon (2) HSV-2 seropositive Current Visit: Yes Status: Acute Subjective - Subjective Date of service: 04/24/22 Principal diagnosis: IUGR Interval history: Pt is a 21 year old female primigravida JULIO 05/09/22 at 37w5d who presented on 04/21/22 for induction of labor secondary to growth restriction. Since admission she has received two doses of Cervidil. She reports irregular contractions. She denies vaginal bleeding or leakage of fluid. She has had care at [facility] since transfer into care at 23 wks complicated by growth restriction, recent COVID infection, HSV1 infection. She is GBS negative. Pt has received cervidil x 2 doses, low-dose Pitocin and is currently on cytotec. Tolerating well at this time. Patient reports: movement normal, contractions, no new complaints, no loss of fluid, no vaginal bleeding Objective - Vital Signs Vital Signs: Vital Signs - 12hr 04/23/22 04/23/22 04/23/22 21:37 21:39 21:42 Pulse Rate 83 86 Blood Pressure 116/65 O2 Sat by Pulse 79 L 100 Oximetry O2 Sat by Pulse Oximetry [ Anterior Bilateral Throughout] 04/23/22 04/23/22 04/23/22 21:44 21:49 21:54 Pulse Rate 84 85 77 Blood Pressure O2 Sat by Pulse 100 100 99 Oximetry O2 Sat by Pulse Oximetry [ Anterior Bilateral Throughout] 04/23/22 04/23/22 04/23/22 21:59 22:04 22:09 Pulse Rate 86 83 88 Blood Pressure O2 Sat by Pulse 99 99 99 Oximetry O2 Sat by Pulse Oximetry [ Anterior Bilateral Throughout] 04/23/22 04/23/22 04/23/22 22:14 22:19 22:24 Pulse Rate 74 88 101 H Blood Pressure O2 Sat by Pulse 99 99 99 Oximetry O2 Sat by Pulse Oximetry [ Anterior Bilateral Throughout] 04/23/22 04/23/22 04/23/22 22:29 22:34 22:39 Pulse Rate 99 H 82 78 Blood Pressure O2 Sat by Pulse 95 100 99 Oximetry O2 Sat by Pulse Oximetry [ Anterior Bilateral Throughout] 04/23/22 04/23/22 04/23/22 22:43 22:44 22:49 Pulse Rate 77 79 81 Blood Pressure 117/58 O2 Sat by Pulse 100 99 Oximetry O2 Sat by Pulse Oximetry [ Anterior Bilateral Throughout] 04/23/22 04/23/22 04/23/22 22:54 22:59 23:04 Pulse Rate 77 78 76 Blood Pressure O2 Sat by Pulse 99 99 99 Oximetry O2 Sat by Pulse Oximetry [ Anterior Bilateral Throughout] 04/23/22 04/23/22 04/23/22 23:09 23:14 23:19 Pulse Rate 76 79 77 Blood Pressure O2 Sat by Pulse 99 100 99 Oximetry O2 Sat by Pulse Oximetry [ Anterior Bilateral Throughout] 04/23/22 04/23/22 04/23/22 23:24 23:29 23:34 Pulse Rate 81 89 81 Blood Pressure O2 Sat by Pulse 99 99 99 Oximetry O2 Sat by Pulse Oximetry [ Anterior Bilateral Throughout] 04/23/22 04/23/22 04/23/22 23:39 23:42 23:47 Pulse Rate 80 80 104 H Blood Pressure 102/59 O2 Sat by Pulse 98 91 Oximetry O2 Sat by Pulse Oximetry [ Anterior Bilateral Throughout] 04/23/22 04/23/22 04/24/22 23:52 23:57 00:02 Pulse Rate 83 87 78 Blood Pressure O2 Sat by Pulse 100 99 99 Oximetry O2 Sat by Pulse Oximetry [ Anterior Bilateral Throughout] 04/24/22 04/24/22 04/24/22 00:07 00:12 00:17 Pulse Rate 82 83 85 Blood Pressure O2 Sat by Pulse 100 99 99 Oximetry O2 Sat by Pulse Oximetry [ Anterior Bilateral Throughout] 04/24/22 04/24/22 04/24/22 00:22 00:27 00:32 Pulse Rate 89 82 86 Blood Pressure O2 Sat by Pulse 99 100 100 Oximetry O2 Sat by Pulse Oximetry [ Anterior Bilateral Throughout] 04/24/22 04/24/22 04/24/22 00:37 00:42 00:43 Pulse Rate 82 71 85 Blood Pressure 97/55 O2 Sat by Pulse 100 100 Oximetry O2 Sat by Pulse Oximetry [ Anterior Bilateral Throughout] 04/24/22 04/24/22 04/24/22 00:47 00:52 00:57 Pulse Rate 89 94 H 88 Blood Pressure O2 Sat by Pulse 100 100 98 Oximetry O2 Sat by Pulse Oximetry [ Anterior Bilateral Throughout] 04/24/22 04/24/22 04/24/22 01:02 01:07 01:12 Pulse Rate 83 89 78 Blood Pressure O2 Sat by Pulse 98 98 98 Oximetry O2 Sat by Pulse Oximetry [ Anterior Bilateral Throughout] 04/24/22 04/24/22 04/24/22 01:17 01:22 01:27 Pulse Rate 89 80 82 Blood Pressure O2 Sat by Pulse 99 98 98 Oximetry O2 Sat by Pulse Oximetry [ Anterior Bilateral Throughout] 04/24/22 04/24/22 04/24/22 01:32 01:37 01:42 Pulse Rate 92 H 82 88 Blood Pressure O2 Sat by Pulse 98 100 100 Oximetry O2 Sat by Pulse Oximetry [ Anterior Bilateral Throughout] 04/24/22 04/24/22 04/24/22 01:44 01:47 01:52 Pulse Rate 81 79 93 H Blood Pressure 91/51 O2 Sat by Pulse 100 100 Oximetry O2 Sat by Pulse Oximetry [ Anterior Bilateral Throughout] 04/24/22 04/24/22 04/24/22 01:57 02:02 02:07 Pulse Rate 78 76 77 Blood Pressure O2 Sat by Pulse 98 100 100 Oximetry O2 Sat by Pulse Oximetry [ Anterior Bilateral Throughout] 04/24/22 04/24/22 04/24/22 02:12 02:17 02:22 Pulse Rate 81 74 76 Blood Pressure O2 Sat by Pulse 99 99 98 Oximetry O2 Sat by Pulse Oximetry [ Anterior Bilateral Throughout] 04/24/22 04/24/22 04/24/22 02:27 02:32 02:37 Pulse Rate 71 75 78 Blood Pressure O2 Sat by Pulse 99 99 100 Oximetry O2 Sat by Pulse Oximetry [ Anterior Bilateral Throughout] 04/24/22 04/24/22 04/24/22 02:42 02:44 02:47 Pulse Rate 80 83 77 Blood Pressure 116/59 O2 Sat by Pulse 99 99 Oximetry O2 Sat by Pulse Oximetry [ Anterior Bilateral Throughout] 04/24/22 04/24/22 04/24/22 02:52 02:57 03:02 Pulse Rate 70 68 69 Blood Pressure O2 Sat by Pulse 100 100 100 Oximetry O2 Sat by Pulse Oximetry [ Anterior Bilateral Throughout] 04/24/22 04/24/22 04/24/22 03:07 03:12 03:17 Pulse Rate 69 72 73 Blood Pressure O2 Sat by Pulse 100 100 100 Oximetry O2 Sat by Pulse Oximetry [ Anterior Bilateral Throughout] 04/24/22 04/24/22 04/24/22 03:22 03:27 03:32 Pulse Rate 70 68 72 Blood Pressure O2 Sat by Pulse 100 100 100 Oximetry O2 Sat by Pulse Oximetry [ Anterior Bilateral Throughout] 04/24/22 04/24/22 04/24/22 03:37 03:43 03:48 Pulse Rate 70 70 69 Blood Pressure 88/52 O2 Sat by Pulse 100 100 100 Oximetry O2 Sat by Pulse Oximetry [ Anterior Bilateral Throughout] 04/24/22 04/24/22 04/24/22 03:53 03:58 04:03 Pulse Rate 75 73 76 Blood Pressure O2 Sat by Pulse 99 99 98 Oximetry O2 Sat by Pulse Oximetry [ Anterior Bilateral Throughout] 04/24/22 04/24/22 04/24/22 04:08 04:13 04:18 Pulse Rate 79 72 78 Blood Pressure O2 Sat by Pulse 99 100 99 Oximetry O2 Sat by Pulse Oximetry [ Anterior Bilateral Throughout] 04/24/22 04/24/22 04/24/22 04:23 04:28 04:33 Pulse Rate 70 74 75 Blood Pressure O2 Sat by Pulse 100 99 99 Oximetry O2 Sat by Pulse Oximetry [ Anterior Bilateral Throughout] 04/24/22 04/24/22 04/24/22 04:38 04:43 04:45 Pulse Rate 73 64 64 Blood Pressure 107/57 O2 Sat by Pulse 100 99 Oximetry O2 Sat by Pulse Oximetry [ Anterior Bilateral Throughout] 04/24/22 04/24/22 04/24/22 04:48 04:53 04:58 Pulse Rate 74 71 76 Blood Pressure O2 Sat by Pulse 100 100 99 Oximetry O2 Sat by Pulse Oximetry [ Anterior Bilateral Throughout] 04/24/22 04/24/22 04/24/22 05:06 05:11 05:16 Pulse Rate 107 H 68 71 Blood Pressure O2 Sat by Pulse 97 100 100 Oximetry O2 Sat by Pulse Oximetry [ Anterior Bilateral Throughout] 04/24/22 04/24/22 04/24/22 05:21 05:26 05:31 Pulse Rate 72 69 72 Blood Pressure O2 Sat by Pulse 100 100 100 Oximetry O2 Sat by Pulse Oximetry [ Anterior Bilateral Throughout] 04/24/22 04/24/22 04/24/22 05:36 05:41 05:46 Pulse Rate 68 73 76 Blood Pressure O2 Sat by Pulse 100 100 100 Oximetry O2 Sat by Pulse Oximetry [ Anterior Bilateral Throughout] 04/24/22 04/24/22 04/24/22 05:51 05:56 06:01 Pulse Rate 78 87 74 Blood Pressure 114/65 O2 Sat by Pulse 80 L 100 100 Oximetry O2 Sat by Pulse Oximetry [ Anterior Bilateral Throughout] 04/24/22 04/24/22 04/24/22 06:06 06:11 06:16 Pulse Rate 74 71 72 Blood Pressure O2 Sat by Pulse 100 100 99 Oximetry O2 Sat by Pulse Oximetry [ Anterior Bilateral Throughout] 04/24/22 04/24/22 04/24/22 06:21 06:26 06:31 Pulse Rate 74 78 81 Blood Pressure O2 Sat by Pulse 99 99 99 Oximetry O2 Sat by Pulse Oximetry [ Anterior Bilateral Throughout] 04/24/22 04/24/22 04/24/22 06:36 06:41 06:43 Pulse Rate 74 76 70 Blood Pressure 103/61 O2 Sat by Pulse 100 100 Oximetry O2 Sat by Pulse Oximetry [ Anterior Bilateral Throughout] 04/24/22 04/24/22 04/24/22 06:46 06:51 06:56 Pulse Rate 74 82 71 Blood Pressure O2 Sat by Pulse 99 99 100 Oximetry O2 Sat by Pulse Oximetry [ Anterior Bilateral Throughout] 04/24/22 04/24/22 04/24/22 07:01 07:06 07:11 Pulse Rate 68 70 67 Blood Pressure O2 Sat by Pulse 100 99 99 Oximetry O2 Sat by Pulse Oximetry [ Anterior Bilateral Throughout] 04/24/22 04/24/22 04/24/22 07:16 07:21 07:26 Pulse Rate 70 73 71 Blood Pressure O2 Sat by Pulse 99 98 98 Oximetry O2 Sat by Pulse Oximetry [ Anterior Bilateral Throughout] 04/24/22 04/24/22 04/24/22 07:31 07:36 07:41 Pulse Rate 67 73 69 Blood Pressure O2 Sat by Pulse 99 99 100 Oximetry O2 Sat by Pulse Oximetry [ Anterior Bilateral Throughout] 04/24/22 04/24/22 04/24/22 07:43 07:48 07:53 Pulse Rate 71 64 Blood Pressure O2 Sat by Pulse 86 100 100 Oximetry O2 Sat by Pulse Oximetry [ Anterior Bilateral Throughout] 04/24/22 04/24/22 04/24/22 07:58 08:03 08:08 Pulse Rate 64 68 64 Blood Pressure O2 Sat by Pulse 100 99 100 Oximetry O2 Sat by Pulse Oximetry [ Anterior Bilateral Throughout] 04/24/22 04/24/22 04/24/22 08:14 08:19 08:24 Pulse Rate 79 65 69 Blood Pressure O2 Sat by Pulse 100 99 100 Oximetry O2 Sat by Pulse 100 Oximetry [ Anterior Bilateral Throughout] 04/24/22 04/24/22 04/24/22 08:25 08:29 08:31 Pulse Rate 74 68 71 Blood Pressure O2 Sat by Pulse 86 97 92 Oximetry O2 Sat by Pulse Oximetry [ Anterior Bilateral Throughout] 04/24/22 04/24/22 04/24/22 08:34 08:39 08:42 Pulse Rate 75 66 69 Blood Pressure 119/77 O2 Sat by Pulse 97 100 Oximetry O2 Sat by Pulse Oximetry [ Anterior Bilateral Throughout] 04/24/22 04/24/22 08:44 08:49 Pulse Rate 69 73 Blood Pressure O2 Sat by Pulse 100 100 Oximetry O2 Sat by Pulse Oximetry [ Anterior Bilateral Throughout] - Exam Breasts: deferred Cardiovascular: Regular rate Lungs: Normal air movement Abdomen: Present: other (gravid) Uterus: Present: other (S<D) FHR: category 1 Uterine Contraction Monitor Mode: External Uterine Contraction Pattern: Irregular Uterine Contraction Intensity: Mild Extremities: normal - Labs Labs: Abnormal Labs 04/21/22 21:00 WBC 4.2 L
[2022-04-24] MEDS ORDERED: miSOPROStol 25 MCG TAB ONE (11:55)
[2022-04-24] MEDS: LACTATED RINGERS 1,000 ML IV SCH (14:10)
[2022-04-24] MEDS ORDERED: MAGNESIUM HYDROXIDE (MOM) ORAL LIQD UDC PO PRN (16:44)
[2022-04-24] MEDS ORDERED: LANOLIN/ZINC/DIMETHICONE (LANSINOH) 7 GM TP PRN (16:44)
[2022-04-24] MEDS ORDERED: WITCH HAZEL/ GLYCERIN PAD TP PRN (16:44)
[2022-04-24] MEDS ORDERED: PROMETHAZINE 25 MG TAB PO PRN (16:44)
[2022-04-24] MEDS ORDERED: oxyCODONE /ACETAMINOPHEN 5-325MG TAB PO PRN (16:44)
[2022-04-24] MEDS ORDERED: diphenhydrAMINE 25 MG CAP PO PRN (16:44)
--- NOTE | 2022-04-24 16:51 | Procedure Note ---
OB Delivery Note - Delivery Date of Delivery: 04/24/22 (1630) Surgeon: NATALIIA PEACOCK (MASOODM) Estimated blood loss: 200cc - Vaginal Delivery presentation: vertex Delivery position: OA (HALEY) Intrapartum events: none Delivery induction: cervidil Delivery augmentation: rupture of membranes (SROM today @ 1354, clear fluids) Delivery monitor: external FHT, external uterine Route of delivery: Delivery placenta: spontaneous (1635, smith) Delivery cord: 3 umbilical vessels Episiotomy: none Delivery laceration: 1st degree (hemastaic, no repair required) Anesthesia: none Delivery comments: of viable, crying female , placed directly on maternal abdomen. NICU nurse at bedside for delivery. Cord double clamped and cut by myself. Placenta spontaneously delivered, disposed per hospital policy. Uterus firm @ U-3, hemostasis maintained. Perineum with 1st degree laceration, no repair required. Mother and baby safe, stable and left in care of RN. - Infant A at 1 minute: 8 at 5 minutes: 9 Infant Gender: Female (Weight: 2850 gms (6lbs 5 ozs))
[2022-04-25 04:31] LABS: Hematocrit 27.1 % (30.3-42.9)
--- NOTE | 2022-04-25 08:05 | Discharge Summary ---
Providers - Providers Date of Admission: 04/21/22 20:25 Date of discharge: 04/26/22 Attending physician: JOEY BARDALES Primary care physician: JOEY BARDALES Hospitalization Reason for admission: induction of labor Delivery: Episiotomy: none Laceration: 1st degree (healing as expected) Other procedures: none complications: none Discharge diagnosis: IUP at term delivered, other (anemia) [place] baby: female Hospital course: Pt is a 21 year old female primigravida JULIO 05/09/22 at 37w5d who presented on 04/21/22 for induction of labor secondary to growth restriction. Since admission she has received two doses of Cervidil, cytotec and Pitocin. She has had care at [facility] since transfer into care at 23 wks complicated by growth restriction, recent COVID infection, HSV1 infection. She is GBS negative. Delivered viable female infant via . Condition at discharge: Good Disposition: 01 HOME / SELF CARE / HOMELESS - Discharge Diagnoses (1) HSV-2 seropositive Status: Acute (2) Status post normal vaginal delivery Status: Acute (3) Anemia Status: Acute Qualifiers: Anemia type: iron deficiency Comment: Asymptomatic Increase iron rich foods into diet Plan - Discharge Medications Prescriptions: Ibuprofen [Motrin 800 MG tab] 800 mg PO Q8HR #30 tablet - Provider Discharge Summary Activity: routine, no sex for 6 weeks, no heavy lifting 4 weeks, no strenuous exercise Diet: other (Iron rich diet) Instructions: routine Additional instructions: [] Smoking cessation referral if applicable(refer to patient education folder for contact #) [] Refer to [facility]'s [facility] Booklet Call your doctor immediately for: * Fever > 100.5 * Heavy vaginal bleeding ( >1 pad per hour) * Severe persistent headache * Shortness of breath * Reddened, hot, painful area to leg or breast * Drainage or odor from incision. * Keep incision clean and dry at all times and follow doctor's instructions re garding bathing/showering - Follow up plan Follow up: JOEY BARDALES MD [Primary Care Provider] - 6 Weeks
[2022-04-25] MEDS: PRENATAL VIT27-FE FUMARATE-FOLIC ACID VIT TAB PO SCH (10:12)
[2022-04-25] MEDS: IBUPROFEN 800 MG TAB PO SCH ×3 (10:12→16:00)
[2022-04-26] MEDS: IBUPROFEN 800 MG TAB PO SCH ×2 (06:30)
[2022-04-26] MEDS: PRENATAL VIT27-FE FUMARATE-FOLIC ACID VIT TAB PO SCH (09:34)
[2022-04-26 09:38] VITALS: BP 112/76
== END 2022-04-26 13:05 | disposition home or self-care (01) | DRG 774 ==
LOC: LD 20:25 → OB 04-24 20:01
PROVIDERS: ADMIT Obstetrics & Gynecology; ATTEND Obstetrics & Gynecology
PROC: 10E0XZZ Delivery of Products of Conception, External Approach (ICD-10-PCS; principal; 2022-04-24)
PROC: 0HQ9XZZ Repair Perineum Skin, External Approach (ICD-10-PCS; 2022-04-24)
PROC: 3E0P7VZ Introduction of Hormone into Female Reproductive, Via Natural or Artificial Opening (ICD-10-PCS; 2022-04-24)
DX: O36.5930 Maternal care for other known or suspected poor fetal growth, third trimester, not applicable or unspecified (principal); O98.52 Other viral diseases complicating childbirth; Z3A.37 37 weeks gestation of pregnancy; Z20.822 Contact with and (suspected) exposure to COVID-19; B00.9 Herpesviral infection, unspecified; O70.0 First degree perineal laceration during delivery; Z37.0 Single live birth; O90.81 Anemia of the puerperium
CPT/HCPCS: 36415; 59025; 59200; 85014; 85018; 85027; 86592; 86850; 86900; 86901; 96360; 96374; G0378; J0290; J0595; J2590; J7120; U0003